=== PATIENT | male | born 1940 | race Caucasian/White ===

== ENCOUNTER 2022-04-23 21:01 | Inpatient (IN) | payer MEDICARE, BC ==
[~2022-04-23] VITALS: Ht 175.3 cm; Wt 69.6 kg
--- NOTE | 2022-04-23 19:55 | NUR ---
Received admission report from LYLE Lemus RN.
--- NOTE | 2022-04-23 20:35 | NUR ---
Patient arrived in the floor via [facility], accompanied by 2 EMT's. Awake, alert and responsive. In no apparent distress noted. Right UE with sling noted with limited mobility on affected area. multiple dressings and bruises noted on RUE.Transferred gently from [facility] to bed with 4 people assist. Safety measures and fall precaution initiated. Routine admission care done. Plan of care initiated. No complaint of pain presented at this time.
[2022-04-23 22:00] VITALS: BP 119/44
[2022-04-24] MEDS ORDERED: FURO40TA5 PO (01:56)
[2022-04-24] MEDS ORDERED: DRON400T PO (01:56)
[2022-04-24] MEDS ORDERED: FURO80TA3 PO (01:56)
[2022-04-24] MEDS ORDERED: ATOR10TA PO (01:56)
[2022-04-24] MEDS ORDERED: FOLI1TAB94 PO (01:56)
[2022-04-24] MEDS ORDERED: PANT40TA2 PO (01:56)
[2022-04-24] MEDS ORDERED: DOCU100T2 PO (01:56)
[2022-04-24] MEDS ORDERED: CHOL100062 PO (01:56)
[2022-04-24] MEDS ORDERED: RAMI2.5C55 PO (01:56)
[2022-04-24] MEDS ORDERED: TAMS-3 PO (01:56)
[2022-04-24] MEDS ORDERED: RIVA20TA PO (01:56)
[2022-04-24] MEDS ORDERED: FINA5TAB3 PO (01:56)
[2022-04-24] MEDS ORDERED: CARV6.252 PO (01:56)
[2022-04-24 04:16] VITALS: BP 125/78
[2022-04-24 07:36] VITALS: BP 124/47
[2022-04-24] MEDS: REMEDY ESSENTIAL ZINC PASTE 113 GM TOP SCH (09:54)
[2022-04-24 15:32] VITALS: BP 136/48
--- NOTE | 2022-04-24 20:16 | NUR ---
Recieve patient alert and oriented x4 awake in bed. patient is responsive, able to verbalize his needs. No s/s of pain nor distress noted. Calm and relax at this time. Breathing on room air. Right UE with sling noted with limited mobility on affected area. multiple dressings and bruises noted on RUE. Safety measures and fall precaution initiated. He uses the urinal. No Bowel movement note today. left patient resting peacefully. Will continue to monitor.
--- NOTE | 2022-04-24 20:30 | NUR ---
Received a call from pharmacy that Multag meds not available thru our pharmacy, notify the patient that his meds multag not available in our pharmacy, and ask patient if he has family that can bring his meds from home. Patient said he lives alone, and nobody can come in into his house cause his house keys are inside. Notify patient that we will follow up with pharmacy tomorrow in am, patient okeyed to skip the meds tonight.
[2022-04-24] MEDS ORDERED: FUROSEMIDE 40 MG TABLET PO ONE (20:45)
[2022-04-24 20:47] VITALS: BP 126/49
[2022-04-24] MEDS ORDERED: DRONEDARONE HYDROCHLORIDE 400 MG TABLET PO SCH (21:00)
[2022-04-24] MEDS ORDERED: ATORVASTATIN 10 MG TABLET PO SCH (21:00)
[2022-04-24] MEDS: RIVAROXABAN 10 MG TABLET PO SCH (21:00)
[2022-04-24] MEDS: FINASTERIDE 5 MG TABLET PO SCH (22:16)
[2022-04-24] MEDS: TAMSULOSIN HCL 0.4 MG CAP.SR.24H PO SCH (22:16)
[2022-04-24] MEDS: CARVEDILOL 6.25 MG TABLET PO SCH (22:17)
[2022-04-25] MEDS: REMEDY ESSENTIAL ZINC PASTE 113 GM TOP SCH ×3 (00:35→20:56)
[2022-04-25 04:51] VITALS: BP 144/55
[2022-04-25] MEDS: PANTOPRAZOLE SODIUM 40 MG TABLET.DR PO SCH ×2 (06:48→18:01)
[2022-04-25 07:28] VITALS: BP 115/51
[2022-04-25] MEDS ORDERED: DOCUSATE SODIUM 100 MG CAPSULE PO SCH (09:00)
[2022-04-25] MEDS: CARVEDILOL 6.25 MG TABLET PO SCH ×3 (09:00→18:10)
[2022-04-25] MEDS: FUROSEMIDE 40 MG TABLET PO SCH (09:00)
[2022-04-25] MEDS ORDERED: ATOR20TA PO (09:56)
[2022-04-25] MEDS ORDERED: AMOXIcillin 500 MG CAPSULE PO SCH (10:00)
[2022-04-25] MEDS ORDERED: CLARITHROMYCIN 250 MG TABLET PO SCH (10:00)
[2022-04-25] MEDS: CHOLECALCIFEROL 1,000 UNIT TABLET PO SCH (10:16)
[2022-04-25] MEDS: FOLIC ACID 1 MG TABLET PO SCH (10:26)
[2022-04-25] MEDS: TAMSULOSIN HCL 0.4 MG CAP.SR.24H PO SCH ×2 (10:27→20:55)
[2022-04-25] MEDS: RAMIPRIL 1.25 MG CAPSULE PO SCH ×2 (12:00→13:16)
[2022-04-25] MEDS: DRONEDARONE HYDROCHLORIDE 400 MG TABLET PO SCH ×2 (13:16→20:57)
[2022-04-25 15:12] VITALS: BP 141/99
[2022-04-25] MEDS: RIVAROXABAN 10 MG TABLET PO SCH (18:01)
[2022-04-25 20:25] VITALS: BP 110/46
[2022-04-25] MEDS: FINASTERIDE 5 MG TABLET PO SCH (20:55)
[2022-04-25] MEDS: ATORVASTATIN 20 MG TABLET PO SCH (20:55)
[2022-04-26 04:00] VITALS: BP 118/50
[2022-04-26] MEDS: PANTOPRAZOLE SODIUM 40 MG TABLET.DR PO SCH ×2 (06:32→17:36)
--- NOTE | 2022-04-26 06:57 | NUR ---
no distress noted during shift, patient is alert, oriented x4, no sob, respirations are even nonlabored.
[2022-04-26 07:59] VITALS: BP 108/52
[2022-04-26] MEDS: CHOLECALCIFEROL 1,000 UNIT TABLET PO SCH (09:11)
[2022-04-26] MEDS: FOLIC ACID 1 MG TABLET PO SCH (09:12)
[2022-04-26] MEDS: TAMSULOSIN HCL 0.4 MG CAP.SR.24H PO SCH ×2 (09:12→21:58)
[2022-04-26] MEDS: FUROSEMIDE 40 MG TABLET PO SCH (09:12)
[2022-04-26] MEDS: DOCUSATE SODIUM 100 MG CAPSULE PO SCH (09:12)
[2022-04-26] MEDS: CARVEDILOL 6.25 MG TABLET PO SCH ×2 (09:12→17:00)
[2022-04-26] MEDS: REMEDY ESSENTIAL ZINC PASTE 113 GM TOP SCH ×2 (09:13→21:57)
[2022-04-26] MEDS: DRONEDARONE HYDROCHLORIDE 400 MG TABLET PO SCH ×2 (09:14→21:58)
[2022-04-26] MEDS: RAMIPRIL 1.25 MG CAPSULE PO SCH (09:15)
--- NOTE | 2022-04-26 10:30 | NUR ---
INDIVIDUALIZED PLAN OF CARE
[2022-04-26 14:22] VITALS: BP 98/39
--- NOTE | 2022-04-26 19:07 | NUR ---
pt aox4. no sob; no pain complain noted. h.pylori treatment started. condom cath placed per pt request.
[2022-04-26] MEDS: RIVAROXABAN 10 MG TABLET PO SCH (19:36)
[2022-04-26 20:00] VITALS: BP 115/43
--- NOTE | 2022-04-26 21:30 | NUR ---
PT "ADOPTED SON DELMI" CAME BY TO VISIT. COMPLAINING WHY PT IS STILL IN HOSPITAL. EXPLAINED THE SITUATION THAT PT IS TRANSFERRED HERE IN [facility] FROM [facility]. GAVE TRIPP Cash CM AND SW CONTACT #, TO FURTHER DISCUSS THE PLAN OF CARE. " ADOPTED SON" NO. [id number].
[2022-04-26] MEDS: FINASTERIDE 5 MG TABLET PO SCH (21:58)
[2022-04-26] MEDS: ATORVASTATIN 20 MG TABLET PO SCH (21:58)
[2022-04-27 04:52] VITALS: BP 103/44
[2022-04-27] MEDS: PANTOPRAZOLE SODIUM 40 MG TABLET.DR PO SCH ×2 (06:40→16:35)
[2022-04-27 07:35] VITALS: BP 107/40
[2022-04-27] MEDS: DOCUSATE SODIUM 100 MG CAPSULE PO SCH (08:40)
[2022-04-27] MEDS: FOLIC ACID 1 MG TABLET PO SCH (08:41)
[2022-04-27] MEDS: CHOLECALCIFEROL 1,000 UNIT TABLET PO SCH (08:41)
[2022-04-27] MEDS: CARVEDILOL 6.25 MG TABLET PO SCH ×2 (08:41→17:18)
[2022-04-27] MEDS: DRONEDARONE HYDROCHLORIDE 400 MG TABLET PO SCH ×2 (08:42→21:35)
[2022-04-27] MEDS: BISMUTH SUBSALICYLATE 262 MG/15 ML UDC PO SCH ×4 (08:42→21:36)
[2022-04-27] MEDS: TAMSULOSIN HCL 0.4 MG CAP.SR.24H PO SCH ×2 (08:42→21:35)
[2022-04-27] MEDS: METRONIDAZOLE 250 MG TABLET PO SCH ×4 (08:43→21:35)
[2022-04-27] MEDS: FUROSEMIDE 40 MG TABLET PO SCH (08:46)
[2022-04-27] MEDS: REMEDY ESSENTIAL ZINC PASTE 113 GM TOP SCH ×2 (09:00→21:36)
[2022-04-27] MEDS: TETRACYCLINE 250 MG PO SCH ×4 (11:22→21:35)
[2022-04-27] MEDS: ENSURE ENLIVE (VAN) 240 ML LIQUID PO SCH (11:23)
[2022-04-27] MEDS: RAMIPRIL 1.25 MG CAPSULE PO SCH (11:40)
--- NOTE | 2022-04-27 12:35 | NUR ---
0715-UPON ROUTINE SHIFT EXCHANGE ROUNDS, REC'D PATIENT IN BED, AWAKE, A/OX4, VERBALLY COMMUNICATIVE, DENIES PAIN. ON R/A AND TUYET. WELL. RT ARM SLING IN PLACE, NO S/S OF IMPAIRED CIRCULATION NOTED. CALL LIGHT AT REACH. 0915-PATIENT SITTING AT BEDSIDE., EATING BREAKFAST AND DRINKING FLUIDS, TUYET. WELL NO C/O GI DISCOMFORT. ALL DUE MEDICATIONS ADMINISTERED ORDERED BY MD., SCHEDULED BLOOD PRESSURE MEDICATIONS HELD DT BP LOW. PATIENT DENIES ANY LIGHTHEADEDNESS/DIZZINESS. 12:20PM-PATIENT SITTING AT BEDSIDE, EATING LUNCH AT THIS TIME, SAFETY MEASURES IN PLACE AND CALL LIGHT AT REACH. ASSIST NEEDED.
[2022-04-27 16:00] VITALS: BP 111/39
[2022-04-27] MEDS: RIVAROXABAN 10 MG TABLET PO SCH (18:09)
--- NOTE | 2022-04-27 19:01 | NUR ---
PATIENT IN BED AT THIS TIME, WATCHING TV, NO AMANDEEP OR FROM HIS BASELINE NOTED; SLING ON RT ARM. PATIENT DENIES PAIN. ASSISTED TO THE RESTROOM AND HAD A LARGE SOFT FORMED BM.
[2022-04-27 20:18] VITALS: BP 107/39
[2022-04-27] MEDS: ATORVASTATIN 20 MG TABLET PO SCH (21:35)
[2022-04-27] MEDS: FINASTERIDE 5 MG TABLET PO SCH (21:35)
[2022-04-28 04:00] VITALS: BP 107/42
[2022-04-28] MEDS: PANTOPRAZOLE SODIUM 40 MG TABLET.DR PO SCH ×2 (06:13→16:28)
[2022-04-28 08:00] VITALS: BP 109/54
[2022-04-28] MEDS: DOCUSATE SODIUM 100 MG CAPSULE PO SCH (08:34)
[2022-04-28] MEDS: FOLIC ACID 1 MG TABLET PO SCH (08:34)
[2022-04-28] MEDS: CHOLECALCIFEROL 1,000 UNIT TABLET PO SCH (08:35)
[2022-04-28] MEDS: BISMUTH SUBSALICYLATE 262 MG/15 ML UDC PO SCH ×4 (08:38→21:35)
[2022-04-28] MEDS: RAMIPRIL 1.25 MG CAPSULE PO SCH (09:00)
[2022-04-28] MEDS: FUROSEMIDE 40 MG TABLET PO SCH (09:30)
[2022-04-28] MEDS: ENSURE ENLIVE (VAN) 240 ML LIQUID PO SCH (09:32)
[2022-04-28] MEDS: METRONIDAZOLE 250 MG TABLET PO SCH ×4 (09:33→21:34)
[2022-04-28] MEDS: DRONEDARONE HYDROCHLORIDE 400 MG TABLET PO SCH ×2 (09:33→21:34)
[2022-04-28] MEDS: TETRACYCLINE 250 MG PO SCH ×4 (09:33→21:34)
[2022-04-28] MEDS: REMEDY ESSENTIAL ZINC PASTE 113 GM TOP SCH ×2 (09:34→21:35)
[2022-04-28] MEDS: TAMSULOSIN HCL 0.4 MG CAP.SR.24H PO SCH ×2 (10:21→21:34)
[2022-04-28] MEDS: CARVEDILOL 6.25 MG TABLET PO SCH ×2 (10:21→16:44)
[2022-04-28 15:44] VITALS: BP 125/50
--- NOTE | 2022-04-28 17:55 | NUR ---
0710-Patient rec'd in bed, awake, a/oX4, able to communicate all his needs and follow directions. RT arm sling in place, no circulation impairment noted. Patient denies pain. Call light at reach. 0900-Patient eating breakfast, scheduled blood pressure medications held due to low blood pressure; patient denies any lightheadedness, or dizziness. All other medications administered as scheduled with no A/R noted; oral fluids encouraged as tolerated and taken well. Patient denies any discomfort. Safety precaution reminders provided, encouraged to please use call light for help every time needed. 1800-No AMANDEEP, patient continues under rehab for PT/OT skilled services as ordered, heide. well and actively able to participate in therapy. All needs attended well and met.
[2022-04-28] MEDS: RIVAROXABAN 10 MG TABLET PO SCH (18:07)
[2022-04-28 20:00] VITALS: BP 110/55
[2022-04-28] MEDS: FINASTERIDE 5 MG TABLET PO SCH (21:34)
[2022-04-28] MEDS: ATORVASTATIN 20 MG TABLET PO SCH (21:34)
[2022-04-29 04:00] VITALS: BP 118/36
[2022-04-29] MEDS: PANTOPRAZOLE SODIUM 40 MG TABLET.DR PO SCH ×3 (06:10→17:10)
--- NOTE | 2022-04-29 07:24 | NUR ---
Rec'd in bed, asleep, able to wake up, on R/A and heide. well, patient denies any discomfort. Call light at reach.
[2022-04-29 08:00] VITALS: BP 128/59
[2022-04-29] MEDS: DOCUSATE SODIUM 100 MG CAPSULE PO SCH (08:30)
[2022-04-29] MEDS: FOLIC ACID 1 MG TABLET PO SCH (08:30)
[2022-04-29] MEDS: CHOLECALCIFEROL 1,000 UNIT TABLET PO SCH (08:31)
[2022-04-29] MEDS: FUROSEMIDE 40 MG TABLET PO SCH (08:35)
[2022-04-29] MEDS: TETRACYCLINE 250 MG PO SCH ×4 (08:35→21:36)
[2022-04-29] MEDS: DRONEDARONE HYDROCHLORIDE 400 MG TABLET PO SCH ×2 (08:35→21:36)
[2022-04-29] MEDS: METRONIDAZOLE 250 MG TABLET PO SCH ×4 (08:36→21:36)
[2022-04-29] MEDS: BISMUTH SUBSALICYLATE 262 MG/15 ML UDC PO SCH ×4 (08:37→21:37)
[2022-04-29] MEDS: TAMSULOSIN HCL 0.4 MG CAP.SR.24H PO SCH ×2 (09:53→21:35)
[2022-04-29] MEDS: RAMIPRIL 1.25 MG CAPSULE PO SCH (09:54)
[2022-04-29] MEDS: ENSURE ENLIVE (VAN) 240 ML LIQUID PO SCH (09:59)
[2022-04-29] MEDS: REMEDY ESSENTIAL ZINC PASTE 113 GM TOP SCH ×2 (09:59→21:43)
[2022-04-29] MEDS: CARVEDILOL 6.25 MG TABLET PO SCH ×2 (10:00→17:15)
--- NOTE | 2022-04-29 13:12 | NUR ---
0900-Due/scheduled medications administered as ordered with no ASE noted, patient cooperative and compliant with treatment and care. Patient with good appetite, ate his breakfast and tolerated well, no C/O GI distress. Continues on oral atb therapy for H. pylori with no A/R noted. Oral fluids taken well. 11:30-patient had PT/OT tolerated well and actively able to participate in his therapy. Arm sling in place, no c/o any pain. 13:00-Scheduled medications administered, no ASE. Patient ate 100% of his lunch and consumed all his fluids. Patient denies GI discomfort, no N/V noted.
[2022-04-29 16:00] VITALS: BP 103/46
--- NOTE | 2022-04-29 16:30 | NUR ---
INTERDISCIPLINARY TEAM CONFERENCE
[2022-04-29] MEDS: RIVAROXABAN 10 MG TABLET PO SCH (17:12)
[2022-04-29 20:00] VITALS: BP 118/76
[2022-04-29] MEDS: ATORVASTATIN 20 MG TABLET PO SCH (21:35)
[2022-04-29] MEDS: FINASTERIDE 5 MG TABLET PO SCH (21:36)
[2022-04-30 04:00] VITALS: BP 110/48
--- NOTE | 2022-04-30 06:40 | NUR ---
Tolerated all medications well. No distress noted. Able to make all needs known. Safety maintained, will endorse to day shift.
[2022-04-30 07:35] VITALS: BP 118/48
[2022-04-30 08:00] VITALS: BP 118/48
[2022-04-30] MEDS: RAMIPRIL 1.25 MG CAPSULE PO SCH (08:42)
[2022-04-30] MEDS: CARVEDILOL 6.25 MG TABLET PO SCH ×2 (08:43→17:00)
[2022-04-30] MEDS: DOCUSATE SODIUM 100 MG CAPSULE PO SCH (08:43)
[2022-04-30] MEDS: TAMSULOSIN HCL 0.4 MG CAP.SR.24H PO SCH ×2 (08:44→20:33)
[2022-04-30] MEDS: CHOLECALCIFEROL 1,000 UNIT TABLET PO SCH (08:44)
[2022-04-30] MEDS: FOLIC ACID 1 MG TABLET PO SCH (08:44)
[2022-04-30] MEDS: ENSURE ENLIVE (VAN) 240 ML LIQUID PO SCH (08:44)
[2022-04-30] MEDS: METRONIDAZOLE 250 MG TABLET PO SCH ×4 (08:45→20:33)
[2022-04-30] MEDS: REMEDY ESSENTIAL ZINC PASTE 113 GM TOP SCH ×2 (08:45→20:17)
[2022-04-30] MEDS: BISMUTH SUBSALICYLATE 262 MG/15 ML UDC PO SCH ×4 (08:45→20:33)
[2022-04-30] MEDS: TETRACYCLINE 250 MG PO SCH ×4 (08:46→20:32)
[2022-04-30] MEDS: DRONEDARONE HYDROCHLORIDE 400 MG TABLET PO SCH ×2 (08:47→20:32)
[2022-04-30] MEDS: FUROSEMIDE 40 MG TABLET PO SCH (08:48)
[2022-04-30 15:14] VITALS: BP 112/49
[2022-04-30] MEDS: PANTOPRAZOLE SODIUM 40 MG TABLET.DR PO SCH (17:02)
[2022-04-30] MEDS: RIVAROXABAN 10 MG TABLET PO SCH (17:07)
--- NOTE | 2022-04-30 18:23 | NUR ---
Patient tolerated care well throughout shift with no complaints of pain or distress. Patient tolerating PT/OT during shift. Bed left in lowest position. Call light within reach. Comfort measures provided. Will endorse information to PM nurse.
[2022-04-30 20:00] VITALS: BP 114/46
[2022-04-30] MEDS: FINASTERIDE 5 MG TABLET PO SCH (20:33)
[2022-04-30] MEDS: ATORVASTATIN 20 MG TABLET PO SCH (20:33)
[2022-05-01 04:00] VITALS: BP 111/46
[2022-05-01] MEDS: PANTOPRAZOLE SODIUM 40 MG TABLET.DR PO SCH ×2 (06:11→17:38)
[2022-05-01 07:47] VITALS: BP 115/47
[2022-05-01] MEDS: FOLIC ACID 1 MG TABLET PO SCH (08:52)
[2022-05-01] MEDS: DOCUSATE SODIUM 100 MG CAPSULE PO SCH (08:57)
[2022-05-01] MEDS: TAMSULOSIN HCL 0.4 MG CAP.SR.24H PO SCH ×2 (08:57→21:22)
[2022-05-01] MEDS: METRONIDAZOLE 250 MG TABLET PO SCH ×4 (08:57→21:22)
[2022-05-01] MEDS: CHOLECALCIFEROL 1,000 UNIT TABLET PO SCH (08:57)
[2022-05-01] MEDS: BISMUTH SUBSALICYLATE 262 MG/15 ML UDC PO SCH ×4 (08:58→21:30)
[2022-05-01] MEDS: TETRACYCLINE 250 MG PO SCH ×4 (08:58→21:24)
[2022-05-01] MEDS: DRONEDARONE HYDROCHLORIDE 400 MG TABLET PO SCH ×2 (08:59→21:23)
[2022-05-01] MEDS: RAMIPRIL 1.25 MG CAPSULE PO SCH (09:00)
[2022-05-01] MEDS: CARVEDILOL 6.25 MG TABLET PO SCH ×3 (09:00→17:00)
[2022-05-01] MEDS: ENSURE ENLIVE (VAN) 240 ML LIQUID PO SCH (09:04)
[2022-05-01] MEDS: REMEDY ESSENTIAL ZINC PASTE 113 GM TOP SCH ×2 (09:05→21:35)
[2022-05-01] MEDS: FUROSEMIDE 40 MG TABLET PO SCH (09:39)
[2022-05-01 16:13] VITALS: BP 108/36
[2022-05-01] MEDS: RIVAROXABAN 10 MG TABLET PO SCH (17:38)
[2022-05-01 20:48] VITALS: BP 113/46
[2022-05-01] MEDS: ATORVASTATIN 20 MG TABLET PO SCH (21:22)
[2022-05-01] MEDS: FINASTERIDE 5 MG TABLET PO SCH (21:31)
--- NOTE | 2022-05-02 | NUR ---
RESTED FAIARLY WELL, DUE MEDS GIVEN, NO COMPLAINTS PRESENTED.VIOIDED FREELY WELL, KEPT DRY AND COMFORTABLE.SLEPT INTERMITTENTLY.CALL LITE W/I REACH.AFEBRILE.
[2022-05-02 04:49] VITALS: BP 117/48
[2022-05-02] MEDS: PANTOPRAZOLE SODIUM 40 MG TABLET.DR PO SCH ×2 (06:31→16:55)
[2022-05-02 07:49] VITALS: BP 116/37
[2022-05-02] MEDS: DOCUSATE SODIUM 100 MG CAPSULE PO SCH (08:29)
[2022-05-02] MEDS: FOLIC ACID 1 MG TABLET PO SCH (08:30)
[2022-05-02] MEDS: FUROSEMIDE 40 MG TABLET PO SCH (08:30)
[2022-05-02] MEDS: TAMSULOSIN HCL 0.4 MG CAP.SR.24H PO SCH ×2 (08:30→21:11)
[2022-05-02] MEDS: DRONEDARONE HYDROCHLORIDE 400 MG TABLET PO SCH ×2 (08:30→21:13)
[2022-05-02] MEDS: CHOLECALCIFEROL 1,000 UNIT TABLET PO SCH (08:31)
[2022-05-02] MEDS: CARVEDILOL 6.25 MG TABLET PO SCH ×2 (08:31→16:56)
[2022-05-02] MEDS: ENSURE ENLIVE (VAN) 240 ML LIQUID PO SCH (08:32)
[2022-05-02] MEDS: METRONIDAZOLE 250 MG TABLET PO SCH ×4 (08:35→21:11)
[2022-05-02] MEDS: TETRACYCLINE 250 MG PO SCH ×4 (08:35→21:12)
[2022-05-02] MEDS: REMEDY ESSENTIAL ZINC PASTE 113 GM TOP SCH ×2 (08:36→21:13)
[2022-05-02] MEDS: RAMIPRIL 1.25 MG CAPSULE PO SCH (08:44)
[2022-05-02] MEDS: BISMUTH SUBSALICYLATE 262 MG/15 ML UDC PO SCH ×2 (08:44→12:13)
[2022-05-02 15:44] VITALS: BP 120/53
[2022-05-02] MEDS: BISMUTH SUBSALICYLATE 525 MG PO SCH ×2 (16:59→21:12)
[2022-05-02] MEDS: RIVAROXABAN 10 MG TABLET PO SCH (17:00)
[2022-05-02 20:00] VITALS: BP 118/44
[2022-05-02] MEDS: ATORVASTATIN 20 MG TABLET PO SCH (21:11)
[2022-05-02] MEDS: FINASTERIDE 5 MG TABLET PO SCH (21:11)
[2022-05-03 04:00] VITALS: BP 118/45
[2022-05-03] MEDS: PANTOPRAZOLE SODIUM 40 MG TABLET.DR PO SCH ×2 (06:37→16:23)
--- NOTE | 2022-05-03 06:52 | NUR ---
no acute distress noted during shift
[2022-05-03 08:06] VITALS: BP 125/44
[2022-05-03] MEDS: DOCUSATE SODIUM 100 MG CAPSULE PO SCH (08:48)
[2022-05-03] MEDS: FUROSEMIDE 40 MG TABLET PO SCH (08:48)
[2022-05-03] MEDS: TAMSULOSIN HCL 0.4 MG CAP.SR.24H PO SCH ×2 (08:48→20:59)
[2022-05-03] MEDS: CHOLECALCIFEROL 1,000 UNIT TABLET PO SCH (08:49)
[2022-05-03] MEDS: CARVEDILOL 6.25 MG TABLET PO SCH ×3 (08:49→17:36)
[2022-05-03] MEDS: FOLIC ACID 1 MG TABLET PO SCH (08:49)
[2022-05-03] MEDS: ENSURE ENLIVE (VAN) 240 ML LIQUID PO SCH (08:51)
[2022-05-03] MEDS: DRONEDARONE HYDROCHLORIDE 400 MG TABLET PO SCH ×2 (08:51→20:59)
[2022-05-03] MEDS: RAMIPRIL 1.25 MG CAPSULE PO SCH (08:52)
[2022-05-03] MEDS: METRONIDAZOLE 250 MG TABLET PO SCH ×4 (08:52→20:59)
[2022-05-03] MEDS: TETRACYCLINE 250 MG PO SCH ×4 (08:53→20:58)
[2022-05-03] MEDS: BISMUTH SUBSALICYLATE 525 MG PO SCH ×4 (08:55→20:59)
[2022-05-03] MEDS: REMEDY ESSENTIAL ZINC PASTE 113 GM TOP SCH ×2 (09:57→21:00)
--- NOTE | 2022-05-03 11:15 | NUR ---
0725-Patient in bed at this time, no apparent respiratory distress noted; patient denies pain. Call light at reach. 0900-All due meds administered, no ASE noted, oral fluids taken well, patient denies any pain and is eating breakfast at this time. Call light at reach, safety measures in place.
[2022-05-03 16:00] VITALS: BP 109/43
[2022-05-03] MEDS: RIVAROXABAN 10 MG TABLET PO SCH (18:13)
[2022-05-03 20:00] VITALS: BP 113/44
[2022-05-03] MEDS: ATORVASTATIN 20 MG TABLET PO SCH (20:59)
[2022-05-03] MEDS: FINASTERIDE 5 MG TABLET PO SCH (20:59)
[2022-05-04 04:00] VITALS: BP 111/51
[2022-05-04] MEDS: PANTOPRAZOLE SODIUM 40 MG TABLET.DR PO SCH ×2 (06:41→16:22)
--- NOTE | 2022-05-04 08:00 | NUR ---
NSG: Received patient lying in bed. alert and oriented x4,ambulatory. noted sling on right arm for support. patient denies any discomfort. Call light at reach.
[2022-05-04 08:08] VITALS: BP 109/45
[2022-05-04 09:00] VITALS: BP 117/55
[2022-05-04] MEDS: RAMIPRIL 1.25 MG CAPSULE PO SCH (09:00)
[2022-05-04] MEDS: CHOLECALCIFEROL 1,000 UNIT TABLET PO SCH (09:09)
[2022-05-04] MEDS: DOCUSATE SODIUM 100 MG CAPSULE PO SCH (09:09)
[2022-05-04] MEDS: FUROSEMIDE 40 MG TABLET PO SCH (09:09)
[2022-05-04] MEDS: METRONIDAZOLE 250 MG TABLET PO SCH ×4 (09:10→21:03)
[2022-05-04] MEDS: FOLIC ACID 1 MG TABLET PO SCH (09:10)
[2022-05-04] MEDS: CARVEDILOL 6.25 MG TABLET PO SCH ×2 (09:10→16:24)
[2022-05-04] MEDS: DRONEDARONE HYDROCHLORIDE 400 MG TABLET PO SCH ×2 (09:10→21:03)
[2022-05-04] MEDS: TAMSULOSIN HCL 0.4 MG CAP.SR.24H PO SCH ×2 (09:28→21:03)
[2022-05-04] MEDS: BISMUTH SUBSALICYLATE 525 MG PO SCH ×4 (09:31→21:04)
[2022-05-04] MEDS: TETRACYCLINE 250 MG PO SCH ×4 (09:33→21:04)
[2022-05-04] MEDS: REMEDY ESSENTIAL ZINC PASTE 113 GM TOP SCH ×2 (09:37→21:04)
[2022-05-04] MEDS: ENSURE ENLIVE (VAN) 240 ML LIQUID PO SCH (09:37)
--- NOTE | 2022-05-04 12:30 | NUR ---
SPOKE TO Dr PERERA RECEIVED ORDER FOR ENT AND GI CONSULT. ER DOCTOR MADE AWARE IS COMING TO EVAL PATIENT THROAT.
--- NOTE | 2022-05-04 14:40 | NUR ---
nsg: patient resting in bed watching tv. Tolerated all medications well. No distress noted. Able to make all needs known. Safety maintained. call light w/in reach.
--- NOTE | 2022-05-04 16:00 | NUR ---
nsg: received call from jodie ( lab) patient is mrsa nares. patient is on contact isolation.
[2022-05-04 16:34] VITALS: BP 111/54
[2022-05-04] MEDS: RIVAROXABAN 10 MG TABLET PO SCH (17:06)
[2022-05-04 20:35] VITALS: BP 116/50
[2022-05-04] MEDS: FINASTERIDE 5 MG TABLET PO SCH (21:03)
[2022-05-04] MEDS: ATORVASTATIN 20 MG TABLET PO SCH (21:03)
[2022-05-05 04:20] VITALS: BP 123/57
[2022-05-05] MEDS: PANTOPRAZOLE SODIUM 40 MG TABLET.DR PO SCH (06:04)
[2022-05-05 08:00] VITALS: BP 119/74
[2022-05-05] MEDS: DOCUSATE SODIUM 100 MG CAPSULE PO SCH (08:38)
[2022-05-05] MEDS: TAMSULOSIN HCL 0.4 MG CAP.SR.24H PO SCH (08:38)
[2022-05-05] MEDS: FOLIC ACID 1 MG TABLET PO SCH (08:38)
[2022-05-05] MEDS: CARVEDILOL 6.25 MG TABLET PO SCH (08:39)
[2022-05-05 08:40] VITALS: BP 119/74
[2022-05-05] MEDS: RAMIPRIL 1.25 MG CAPSULE PO SCH (08:40)
[2022-05-05] MEDS: TETRACYCLINE 250 MG PO SCH ×2 (08:40→14:01)
[2022-05-05] MEDS: DRONEDARONE HYDROCHLORIDE 400 MG TABLET PO SCH (08:41)
[2022-05-05] MEDS: CHOLECALCIFEROL 1,000 UNIT TABLET PO SCH (08:42)
[2022-05-05] MEDS: METRONIDAZOLE 250 MG TABLET PO SCH ×2 (08:43→14:01)
[2022-05-05] MEDS: BISMUTH SUBSALICYLATE 525 MG PO SCH ×2 (08:44→14:02)
[2022-05-05] MEDS: FUROSEMIDE 40 MG TABLET PO SCH (08:47)
--- NOTE | 2022-05-05 09:00 | NUR ---
AWAKE ALERT AND ORIENTED AMBULATORY WITH SLING TO HIS RIGHT ARM WITH ADEQUATE CIRCULATION UP TO THE GWM AND TOLERATING PHYSICAL THERAPY ORDERED D/C PLANNING TODAY.
[2022-05-05] MEDS: ENSURE ENLIVE (VAN) 240 ML LIQUID PO SCH (09:19)
[2022-05-05] MEDS: REMEDY ESSENTIAL ZINC PASTE 113 GM TOP SCH (09:20)
--- NOTE | 2022-05-05 14:00 | NUR ---
PATIENT IS FOR DISCHARGE TODAY TO THE [facility] FOR [facility] PER THE PHARMACIST'S AIDE DR MAC AND DR REYNOLDS AWARE WITH NEW ORDERS.PATIENT AWARE AND IS AGREEABLE.
--- NOTE | 2022-05-05 15:40 | NUR ---
CALLED THE [facility] SPOKE WITH JERRY AND REPORT GIVEN FOR CONTINUING CARE PATIENT DISCHARGED IN SATISFACTORY CONDITION WITH DISCHARGE INSTRUCTION AND ALL HIS PERSONAL BELONGINGS.
== END 2022-05-05 15:40 | DRG 947 ==
PROVIDERS: ADMIT Physical Medicine & Rehabilitation Pain Medicine; ATTEND Physical Medicine & Rehabilitation Pain Medicine
DX: R53.1 Weakness (principal); I21.4 Non-ST elevation (NSTEMI) myocardial infarction; K25.4 Chronic or unspecified gastric ulcer with hemorrhage; I48.20 Chronic atrial fibrillation, unspecified; N17.9 Acute kidney failure, unspecified; S42.211D Unspecified displaced fracture of surgical neck of right humerus, subsequent encounter for fracture with routine healing; B96.81 Helicobacter pylori [H. pylori] as the cause of diseases classified elsewhere; W19.XXXD Unspecified fall, subsequent encounter; D64.9 Anemia, unspecified; K29.70 Gastritis, unspecified, without bleeding; I50.9 Heart failure, unspecified; Z79.01 Long term (current) use of anticoagulants; I11.0 Hypertensive heart disease with heart failure; N40.0 Benign prostatic hyperplasia without lower urinary tract symptoms; Z95.810 Presence of automatic (implantable) cardiac defibrillator; E78.5 Hyperlipidemia, unspecified; Z20.822 Contact with and (suspected) exposure to COVID-19
CPT/HCPCS: 97161; 97535-GO-CO; A4663; A6209

== ENCOUNTER 2024-07-19 14:47 | Inpatient (IN) | payer MEDICARE, BC ==
[~2024-07-19] VITALS: Ht 177.8 cm; Wt 71.2 kg
[~2024-07-19 14:47] MED LIST: ATOR20TA PO; CARV6.252 PO; CHOL100062 PO; DOCU100T2 PO; DRON400T PO; FINA5TAB3 PO; FOLI1TAB94 PO; FURO40TA5 PO; FURO80TA3 PO; PANT40TA2 PO; RAMI2.5C55 PO; RIVA20TA PO; TAMS-3 PO
[2024-07-19 21:00] VITALS: BP 110/54; TEMP 98; O2SAT 97
[2024-07-19] MEDS ORDERED: REMEDY ESSENTIAL ZINC PASTE 113 GM TOP PRN ×2 (21:30→22:15)
[2024-07-19] MEDS ORDERED: METF-494 PO (22:29)
[2024-07-19] MEDS ORDERED: INSU100V28 SQ (22:29)
[2024-07-19] MEDS ORDERED: BLOO-668 IN (22:29)
[2024-07-19] MEDS ORDERED: ACET-3117 PO (22:29)
[2024-07-19] MEDS ORDERED: INSU100I26 SQ (22:29)
[2024-07-20] MEDS ORDERED: ACETAMINOPHEN 500 MG TABLET PO PRN (00:15)
[2024-07-20] MEDS ORDERED: TRAMADOL HCL 50 MG TABLET PO PRN (00:15)
[2024-07-20] MEDS ORDERED: DEXTROSE 50% 50 ML DISP.SYRIN IV PRN (04:45)
[2024-07-20] MEDS ORDERED: FUROSEMIDE 40 MG TABLET PO SCH (05:15)
[2024-07-20] MEDS: PANTOPRAZOLE SODIUM 40 MG TABLET.DR PO SCH (06:32)
[2024-07-20] MEDS: BLOOD SUGAR DIAGNOSTIC 1 EACH STRIP VI SCH (06:33)
[2024-07-20 06:47] VITALS: BP 89/43; TEMP 97.6; O2SAT 95
[2024-07-20] MEDS: CHOLECALCIFEROL 1,000 UNIT TABLET PO SCH (08:26)
[2024-07-20] MEDS: DOCUSATE SODIUM 100 MG CAPSULE PO SCH (08:26)
[2024-07-20] MEDS: TAMSULOSIN HCL 0.4 MG CAP.SR.24H PO SCH (08:28)
[2024-07-20] MEDS: FINASTERIDE 5 MG TABLET PO SCH (08:28)
[2024-07-20] MEDS: INSULIN REGULAR, HUMAN 1000 UNIT/10 ML VIAL SQ PRN (08:33)
[2024-07-20] MEDS: FOLIC ACID 1 MG TABLET PO SCH (08:34)
[2024-07-20] MEDS ORDERED: FERR-68 PO (13:22)
[2024-07-20] MEDS: FUROSEMIDE 40 MG TABLET PO SCH (15:39)
[2024-07-20 16:14] VITALS: BP 102/48; TEMP 97.6; O2SAT 98
[2024-07-20] MEDS: RIVAROXABAN 15 MG TABLET PO SCH (17:36)
[2024-07-20] MEDS: ATORVASTATIN 20 MG TABLET PO SCH (17:36)
[2024-07-20] MEDS: DRONEDARONE HYDROCHLORIDE 400 MG TABLET PO SCH (17:37)
[2024-07-20 20:04] VITALS: BP 134/47; TEMP 97.4; O2SAT 99
[2024-07-21 06:20] VITALS: BP 106/40; TEMP 97.9; O2SAT 97
[2024-07-21 15:17] VITALS: BP 99/46; TEMP 97.8; O2SAT 97
[2024-07-21 16:06] LABS: BASOPHILS % (AUTO) 0.4 % (0.0-2.0); EOSINOPHILS # (AUTO) 0.1 K/uL (0.0-0.7); EOSINOPHILS % (AUTO) 2.3 % (0.0-7.0); HEMATOCRIT 24.6 % (36.7-47.1); HEMOGLOBIN 8.5 g/dL (12.5-16.3); LYMPHOCYTES # (AUTO) 1.3 K/uL (0.8-4.8); LYMPHOCYTES % (AUTO) 33.6 % (20.5-51.5); MEAN CORPUSCULAR HEMOGLOBIN 33.3 uug (23.8-33.4); MEAN CORPUSCULAR HGB CONC 35 g/dL (32.5-36.3); MEAN CORPUSCULAR VOLUME 96.3 fL (73.0-96.2); MONOCYTES # (AUTO) 0.3 K/uL (0.1-1.30); MONOCYTES % (AUTO) 7.8 % (0.0-11.0); NEUTROPHILS # (AUTO) 2.2 K/uL (1.8-8.9); NEUTROPHILS % (AUTO) 55.9 % (38.5-71.5); PLATELET COUNT (AUTO) 58 K/uL (152-348); RED BLOOD CELL COUNT(AUTO) 2.55 MIL/uL (4.06-5.63); RED CELL DISTRIBUTION WIDTH 14.3 % (12.1-16.2); WHITE BLOOD COUNT (AUTO) 3.9 K/uL (3.6-10.2)
[2024-07-21 16:13] LABS: CALCIUM 7.6 mg/dL (8.5-10.1); CARBON DIOXIDE 31 mmol/L (21-32); CHLORIDE 103 mmol/L (98-107); CREATININE 1.5 mg/dL (0.6-1.3); GLUCOSE 176 mg/dL (74-106); POTASSIUM 3.5 mmol/L (3.5-5.1); SODIUM SERUM 140 mmol/L (136-145); UREA NITROGEN, BLOOD 28 mg/dL (7-18)
[2024-07-21 16:20] LABS: DIFFERENTIAL COMMENT 1
[2024-07-21 17:05] LABS: BAND % (MANUAL) 3 % (0-10); EOSINOPHILS % (MANUAL) 1 % (0-8); LYMPHOCYTES % (MANUAL) 35 % (20-40); MONOCYTES % (MANUAL) 5 % (2-10); NEUTROPHILS % (MANUAL) 55 % (42-75); PLATELET ESTIMATE DECREASED
[2024-07-21 17:06] LABS: ANISOCYTOSIS 1+; OVALOCYTES 1+
[2024-07-21] MEDS: FERROUS SULFATE 325 MG TABEC PO SCH (17:19)
[2024-07-21 19:33] VITALS: BP 104/62; TEMP 97.6; O2SAT 96
[2024-07-22 06:20] VITALS: BP 117/43; TEMP 97.7; O2SAT 96
[2024-07-22] MEDS: FOLIC ACID 1 MG TABLET PO SCH (08:23)
[2024-07-22 16:14] VITALS: BP 103/42; TEMP 98.1; O2SAT 97
[2024-07-22 20:00] VITALS: BP 85/45; TEMP 97.5; O2SAT 98
[2024-07-23 06:00] VITALS: BP 90/50; TEMP 98.3; O2SAT 95
[2024-07-23] MEDS: MIRALAX 17 GM POWD.PACK PO PRN (12:21)
[2024-07-23 14:00] VITALS: BP 92/44
[2024-07-23 14:01] VITALS: BP 93/37
[2024-07-23 14:02] VITALS: BP 90/34
[2024-07-23 21:11] VITALS: BP 92/48; TEMP 98.8; O2SAT 96
[2024-07-24 07:09] LABS: BASOPHILS % (AUTO) 0.8 % (0.0-2.0); EOSINOPHILS # (AUTO) 0.1 K/uL (0.0-0.7); EOSINOPHILS % (AUTO) 1.9 % (0.0-7.0); HEMATOCRIT 21.8 % (36.7-47.1); HEMOGLOBIN 7.8 g/dL (12.5-16.3); LYMPHOCYTES % (AUTO) 33.3 % (20.5-51.5); MEAN CORPUSCULAR HEMOGLOBIN 33.7 uug (23.8-33.4); MEAN CORPUSCULAR HGB CONC 36 g/dL (32.5-36.3); MEAN CORPUSCULAR VOLUME 94.8 fL (73.0-96.2); MONOCYTES # (AUTO) 0.2 K/uL (0.1-1.30); MONOCYTES % (AUTO) 5.9 % (0.0-11.0); NEUTROPHILS # (AUTO) 1.8 K/uL (1.8-8.9); NEUTROPHILS % (AUTO) 58.1 % (38.5-71.5); PLATELET COUNT (AUTO) 108 K/uL (152-348); RED CELL DISTRIBUTION WIDTH 13.8 % (12.1-16.2); WHITE BLOOD COUNT (AUTO) 3.1 K/uL (3.6-10.2)
[2024-07-24 07:21] LABS: DIFFERENTIAL COMMENT 1
[2024-07-24 07:48] LABS: IRON, SERUM 25 ug/dL (50-175)
[2024-07-24 08:04] LABS: ALANINE AMINOTRANSFERASE 41 U/L (16-63); ALKALINE PHOSPHATASE 47 U/L (50-136); ASPARTATE AMINOTRANSFERASE 22 U/L (15-37); BILIRUBIN,TOTAL 0.5 mg/dL (0.2-1.0); CALCIUM 7.7 mg/dL (8.5-10.1); CARBON DIOXIDE 33 mmol/L (21-32); CHLORIDE 102 mmol/L (98-107); CHOLESTEROL 71 mg/dL (<200); CREATININE 1.6 mg/dL (0.6-1.3); GLUCOSE 261 mg/dL (74-106); HDL CHOLESTEROL 30 mg/dL (40-60); MAGNESIUM 1.8 mg/dL (1.8-2.4); NT-PRO BNP 5170 pg/mL (0-125); PHOSPHOROUS 2.7 mg/dL (2.5-4.9); POTASSIUM 3.4 mmol/L (3.5-5.1); SODIUM SERUM 136 mmol/L (136-145); TOTAL PROTEIN, SERUM 5.6 g/dL (6.4-8.2); TRIGLYCERIDES 68 MG/DL (30-150); UREA NITROGEN, BLOOD 26 mg/dL (7-18)
[2024-07-24 08:24] LABS: *BILIRUBIN,URIN NEGATIVE (NEGATIVE); *BLOOD, URINE NEGATIVE (NEGATIVE); *CLARITY,URINE CLEAR (CLEAR); *COLOR,URINE YELLOW (YELLOW); *KETONES,URINE NEGATIVE (NEGATIVE); *PROTEIN,URINE 1+ (NEGATIVE); *UROBILINOGEN,URINE 0.2 E.U./dl (NORMAL); LEUKOCYTE ESTERASE ,URINE NEGATIVE (NEGATIVE); NITRITE, URINE NEGATIVE (NEGATIVE); PH,URINE 5.5 (5.0-8.0); UGLUCOSE TRACE (NEGATIVE)
[2024-07-24 08:46] LABS: BACTERIA,URINE FEW /HPF (NONE SEEN); SQUAMOUS EPITHELIAL CELL,UR FEW /HPF (NONE SEEN); WBC,URINE 0-3 /HPF (0-3)
[2024-07-24] MEDS: POTASSIUM CHLORIDE 10 MEQ TAB.PRT.SR PO ONE (12:03)
[2024-07-24] MEDS: GUAIFENESIN/DEXTROMETHORPHAN 5 ML UDC PO PRN (14:55)
[2024-07-24 15:00] VITALS: BP 106/51; TEMP 97.6; O2SAT 97
[2024-07-24] MEDS: GLIMEPIRIDE 2 MG TABLET PO SCH (17:17)
[2024-07-24] MEDS: PROTEIN SUPPLEMENT (PROSTAT) 30 ML LIQUID PO SCH (17:18)
[2024-07-24 20:19] VITALS: BP 105/47; TEMP 98.5; O2SAT 94
[2024-07-24] MEDS: TAMSULOSIN HCL 0.4 MG CAP.SR.24H PO SCH (20:33)
[2024-07-25 04:30] VITALS: BP 110/45; TEMP 98.4; O2SAT 94
[2024-07-25 15:05] VITALS: TEMP 98.8
[2024-07-25 19:00] VITALS: BP 103/49; TEMP 98.3; O2SAT 97
[2024-07-26 08:43] LABS: BASOPHILS % (AUTO) 0.8 % (0.0-2.0); EOSINOPHILS # (AUTO) 0.1 K/uL (0.0-0.7); EOSINOPHILS % (AUTO) 1.6 % (0.0-7.0); HEMATOCRIT 24.5 % (36.7-47.1); HEMOGLOBIN 8.4 g/dL (12.5-16.3); LYMPHOCYTES # (AUTO) 1.5 K/uL (0.8-4.8); LYMPHOCYTES % (AUTO) 33.9 % (20.5-51.5); MEAN CORPUSCULAR HGB CONC 35 g/dL (32.5-36.3); MEAN CORPUSCULAR VOLUME 95.8 fL (73.0-96.2); MONOCYTES # (AUTO) 0.2 K/uL (0.1-1.30); MONOCYTES % (AUTO) 5.4 % (0.0-11.0); NEUTROPHILS # (AUTO) 2.5 K/uL (1.8-8.9); NEUTROPHILS % (AUTO) 58.3 % (38.5-71.5); PLATELET COUNT (AUTO) 206 K/uL (152-348); RED BLOOD CELL COUNT(AUTO) 2.56 MIL/uL (4.06-5.63); RED CELL DISTRIBUTION WIDTH 13.8 % (12.1-16.2); WHITE BLOOD COUNT (AUTO) 4.4 K/uL (3.6-10.2)
[2024-07-26 08:52] LABS: DIFFERENTIAL COMMENT 1
[2024-07-26 14:43] VITALS: BP 96/48; TEMP 98; O2SAT 99
[2024-07-26 20:47] VITALS: BP 108/48; TEMP 97.8; O2SAT 95
[2024-07-27 06:31] VITALS: BP 95/36; TEMP 98.1; O2SAT 94
[2024-07-27 16:00] VITALS: BP 101/46; TEMP 97.6; O2SAT 97
[2024-07-27 20:06] VITALS: BP 100/47; TEMP 98.3; O2SAT 95
[2024-07-28 06:41] VITALS: BP 110/47; TEMP 97.9; O2SAT 92
[2024-07-28 16:06] VITALS: BP 103/48; TEMP 97.6; O2SAT 97
[2024-07-28 20:50] VITALS: BP 106/43; TEMP 98.1; O2SAT 96
[2024-07-29 05:41] VITALS: BP 117/47; TEMP 97.9; O2SAT 97
[2024-07-29 16:00] VITALS: BP 109/46; TEMP 97.8; O2SAT 96
[2024-07-29 20:49] VITALS: BP 107/48; TEMP 97.5; O2SAT 96
[2024-07-30 06:20] VITALS: BP 124/56; TEMP 97.6; O2SAT 98
[2024-07-30 15:47] VITALS: BP 117/71; TEMP 99.2; O2SAT 98
[2024-07-30 20:55] VITALS: BP 104/49; TEMP 97.9; O2SAT 94
[2024-07-31 07:20] VITALS: BP 116/57; TEMP 96.8; O2SAT 93
[2024-07-31 08:01] LABS: BASOPHILS % (AUTO) 0.4 % (0.0-2.0); EOSINOPHILS % (AUTO) 0.9 % (0.0-7.0); HEMOGLOBIN 8.8 g/dL (12.5-16.3); LYMPHOCYTES # (AUTO) 2.1 K/uL (0.8-4.8); LYMPHOCYTES % (AUTO) 51.8 % (20.5-51.5); MEAN CORPUSCULAR HEMOGLOBIN 33.7 uug (23.8-33.4); MEAN CORPUSCULAR HGB CONC 35 g/dL (32.5-36.3); MEAN CORPUSCULAR VOLUME 95.8 fL (73.0-96.2); MONOCYTES # (AUTO) 0.3 K/uL (0.1-1.30); MONOCYTES % (AUTO) 7.3 % (0.0-11.0); NEUTROPHILS # (AUTO) 1.6 K/uL (1.8-8.9); NEUTROPHILS % (AUTO) 39.6 % (38.5-71.5); PLATELET COUNT (AUTO) 207 K/uL (152-348); RED BLOOD CELL COUNT(AUTO) 2.61 MIL/uL (4.06-5.63); RED CELL DISTRIBUTION WIDTH 15.1 % (12.1-16.2); WHITE BLOOD COUNT (AUTO) 4.1 K/uL (3.6-10.2)
[2024-07-31 08:05] LABS: DIFFERENTIAL COMMENT 1
[2024-07-31 08:24] LABS: ALANINE AMINOTRANSFERASE 14 U/L (16-63); ALBUMIN 2.2 g/dL (3.4-5.0); ALKALINE PHOSPHATASE 57 U/L (50-136); ASPARTATE AMINOTRANSFERASE < 5 U/L (15-37); BILIRUBIN,TOTAL 0.5 mg/dL (0.2-1.0); CALCIUM 7.4 mg/dL (8.5-10.1); CARBON DIOXIDE 28 mmol/L (21-32); CHLORIDE 107 mmol/L (98-107); CREATININE 1.2 mg/dL (0.6-1.3); GLUCOSE 107 mg/dL (74-106); MAGNESIUM 2.2 mg/dL (1.8-2.4); PHOSPHOROUS 3.3 mg/dL (2.5-4.9); POTASSIUM 4.3 mmol/L (3.5-5.1); SODIUM SERUM 141 mmol/L (136-145); TOTAL PROTEIN, SERUM 5.9 g/dL (6.4-8.2); UREA NITROGEN, BLOOD 18 mg/dL (7-18)
[2024-07-31 16:00] VITALS: BP 120/69; TEMP 98.4; O2SAT 98
[2024-07-31 20:19] VITALS: BP 104/53; TEMP 97.7; O2SAT 95
[2024-08-01 06:11] VITALS: BP 113/50; TEMP 98; O2SAT 97
[2024-08-01 16:00] VITALS: BP 100/66; TEMP 97.5; O2SAT 96
== END 2024-08-01 19:45 | DRG 70 ==
PROVIDERS: ADMIT Physical Medicine & Rehabilitation Pain Medicine; ATTEND Physical Medicine & Rehabilitation Pain Medicine
DX: G93.41 Metabolic encephalopathy (principal); E43 Unspecified severe protein-calorie malnutrition; I21.A1 Myocardial infarction type 2; N17.9 Acute kidney failure, unspecified; I50.22 Chronic systolic (congestive) heart failure; I13.0 Hypertensive heart and chronic kidney disease with heart failure and stage 1 through stage 4 chronic kidney disease, or unspecified chronic kidney disease; D68.59 Other primary thrombophilia; I48.20 Chronic atrial fibrillation, unspecified; I69.354 Hemiplegia and hemiparesis following cerebral infarction affecting left non-dominant side; R53.1 Weakness; E11.9 Type 2 diabetes mellitus without complications; E78.5 Hyperlipidemia, unspecified; I25.10 Atherosclerotic heart disease of native coronary artery without angina pectoris; I48.0 Paroxysmal atrial fibrillation; N40.0 Benign prostatic hyperplasia without lower urinary tract symptoms; N18.2 Chronic kidney disease, stage 2 (mild); D63.1 Anemia in chronic kidney disease; E11.22 Type 2 diabetes mellitus with diabetic chronic kidney disease; E11.65 Type 2 diabetes mellitus with hyperglycemia; E87.6 Hypokalemia; E88.09 Other disorders of plasma-protein metabolism, not elsewhere classified; S42.201D Unspecified fracture of upper end of right humerus, subsequent encounter for fracture with routine healing; W19.XXXD Unspecified fall, subsequent encounter; Z95.810 Presence of automatic (implantable) cardiac defibrillator
CPT/HCPCS: 36415; 70030-TC; 71045; 83550; 83735; 84100; 84443; 84484; 85025; 85610; 97535-GO-CO; J1815